=== PATIENT | female | born 1970 | race Caucasian/White ===

== ENCOUNTER → 2018-08-29 09:41 | Outpatient (CLI) | payer OTHER, SELFPAY ==
--- NOTE | 2018-08-29 09:55 | RAD_ITS ---
PROCEDURE: Fluoroscopic guided Hip Injection DATE: August 29, 2018. INDICATION: Female, 48 years old. Chronic hip pain. PHYSICIAN: Dov Gant M.D. MEDICATIONS: 6 mg of betamethasone and 3 cc of 1% lidocaine. 2% Lidocaine administered subcutaneously for local anesthesia. ACCESS SITE: Left hip. NEEDLE: 22-gauge spinal needle. FLUOROSCOPY TIME (if supplied): (0:33) minutes/seconds FINDINGS: The risks, benefits, and alternatives to the procedure were explained to the patient. The specific risks of bleeding, infection, and neurovascular injury were detailed and accepted. Witnessed informed consent was obtained. A 22-gauge spinal needle was positioned under radiographic fluoroscopic localization. Approximately 2 cc of Isovue-300 instilled for localization purposes. Medication was then injected. The patient tolerated the procedure well without any immediate complications. RAD/Inj/Asp Adria Jt Should/Hip/Knee IMPRESSION: 1. Successful fluoroscopic guided hip injection. Electronically Signed: Dov Gant MD at 10:53 EST Tel [phone], Service support ,
== END ==
PROVIDERS: Family Provider Family Medicine; PCP Family Medicine; Referring Provider Specialist; Visit Provider Specialist
DX: Q65.89 Other specified congenital deformities of hip (principal)
CPT/HCPCS: 20610; 77002; Q9967; J0702

== ENCOUNTER → 2018-11-01 10:13 | Outpatient (CLI) | payer OTHER, SELFPAY ==
--- NOTE | 2018-11-01 10:30 | RAD_ITS ---
CLINICAL HISTORY: Female, 48 years old. Left hip pain. PROCEDURE: ARTHROGRAM - LEFT HIP FLUOROSCOPY TIME (if supplied): (0:48) minutes/seconds Injection Information: 10 cc of dilute Magnevist. Number of images obtained: 1 TECHNIQUE: (All elements of maximal sterile barrier technique followed, including US elements as applicable) The procedure as well as the benefits and possible complications including bleeding and infection were explained to the patient. Informed consent was obtained. The patient was in the supine position. The overlying skin was prepped and draped in usual sterile fashion. Following local anesthetic application and under direct fluoroscopic guidance, a 22-gauge spinal needle was placed into the hip joint. 2 cc of Isovue-300 was injected for confirmation. Following this, 10 cc of dilute Magnevist was injected. The patient tolerated procedure well. MRI will follow. RAD/Arthrogram Hip w/ MRI IMPRESSION: Successful left hip arthrogram for MRI imaging. The patient tolerated the procedure well. Electronically Signed: Dov Gant MD at 11:28 EST , Service support ,
--- NOTE | 2018-11-01 11:30 | MRI_ITS ---
STUDY: MR LEFT HIP ARTHROGRAPHY REASON FOR EXAM: Anterior left hip pain, no specific injury. TECHNIQUE: Standardized fat and water weighted pulse sequences were obtained in all 3 orthogonal planes after intra-articular instillation of dilute Magnevist. COMPARISON: Fluoroscopic view from left hip arthrogram. FINDINGS: Normal hip joint without articular joint space narrowing. Normal acetabulum. There is a small tear of the anterosuperior labrum (CLAUDIA image 10; T1 sagittal image 17). Normal femoral head. Normal femoral neck and intratrochanteric region. Normal gluteus minimus, medius and iliopsoas tendons and distal insertions. There is no trochanteric, iliopsoas or iliopectineal bursitis. Normal superior and inferior pubic rami. Normal pubic symphysis. Normal ischial tuberosity. Normal origin of the hamstring tendons. Normal visualized iliac wing. Normal visualized soft tissue structures of the pelvis. MRI/Lower Ext/Jt Only/W Contrast IMPRESSION: Small tear of the anterosuperior labrum. Electronically Signed: You Wang MD at 14:20 EST Tel , Service support ,
== END ==
PROVIDERS: Family Provider Family Medicine; PCP Family Medicine; Referring Provider Specialist; Visit Provider Specialist
DX: M25.552 Pain in left hip (principal)
CPT/HCPCS: 27093; 73722; 77002; A9577; Q9967

== ENCOUNTER → 2019-06-13 | Outpatient (CLI) | payer OTHER, SELFPAY ==
[2019-06-13 08:43] VITALS: BMI 27.1
--- NOTE | 2019-06-13 10:08 | RAD_ITS ---
STUDY: X-RAY CHEST REASON FOR EXAM: Female, 49 years old. Chest pain times several weeks TECHNIQUE: PA and lateral views of the chest. COMPARISON: None. FINDINGS: The lungs are clear and expanded. There is no demonstrated pleural abnormality. Normal size heart. Normal mediastinum and meagan. Normal visualized pulmonary arteries. Normal visualized aortic arch and descending thoracic aorta. Normal visualized thoracic spine. Normal visualized ribs, clavicles, and shoulders. There is no demonstrated abnormality of the visualized soft tissue structures of the upper abdomen. RAD/Chest PA and Lateral IMPRESSION: Normal x-ray examination of the chest. Electronically Signed: Ever Saha MD at 17:05 EDT , Service support ,
[2019-06-13 10:32] LABS: D-Dimer Quantitative (DVT/PE) < 0.27 FEU/ug/m (0.27-0.49)
== END | disposition home or self-care (01) ==
PROVIDERS: Family Provider Family Medicine; PCP Family Medicine; Referring Provider Family Medicine; Visit Provider Family Medicine
DX: R07.9 Chest pain, unspecified (principal)
CPT/HCPCS: 36415; 71046; 85379

== ENCOUNTER → 2019-06-20 | Outpatient (CLI) | payer OTHER, SELFPAY ==
[2019-06-13 08:43] VITALS: BMI 27.1
--- NOTE | 2019-06-20 15:34 | US_ITS ---
STUDY: ULTRASOUND OF THE FEMALE PELVIS - COMPLETE REASON FOR EXAM: Female, 49 years old. Left lower quadrant pain TECHNIQUE: Transabdominal and transvaginal ultrasound images were obtained of the pelvis TECHNICAL QUALITY: Limited COMPARISON: None. FINDINGS: The uterus measures 8.4 x 4.2 x 2.9 cm. Normal uterine cervix. The endometrium measures 3 mm in thickness. There is no demonstrated myometrial mass. The right ovary is not visualized. The left ovary is not visualized. There is no fluid in the cul-de-sac. US/Pelvic (Non ) IMPRESSION: No pelvic pathology identified. Electronically Signed: Harjit Gibbs, at 17:15 EDT Tel , Service support ,
--- NOTE | 2019-06-20 15:34 | BI_ITS ---
MAMMOGRAPHY - BILATERAL SCREENING REASON FOR EXAM: Female, 49 years old. Routine annual screening examination. PERTINENT HISTORY: Non-contributory. TECHNIQUE: Digital bilateral breast yanet (3D mammographic acquisition) in the CC and MLO projections. 2-D mediolateral oblique (MLO) and craniocaudad (CC) views of both breasts were obtained. CAD: Full Field Digital Mammography with Computer Added Detection was performed. COMPARISON: Comparison is made with prior outside examination dated June 13, 2015. FINDINGS: Breast Composition: The breasts are heterogeneously dense, which may obscure small masses. There are no dominant masses or suspicious calcifications. No other significant abnormalities are identified. There has been no significant change since the prior study. BI/SCREEN MAMM (CAD) W/YANET BILAT IMPRESSION: Stable bilateral screening mammogram. Yearly follow-up mammogram recommended. (A) ASSESSMENT CATEGORY: BIRADS Category 1: Negative. A letter regarding these results will be sent to the patient by the facility within 30 days. Approximately 10% of breast cancers are not detected by mammography. A normal mammogram should not delay biopsy of a clinically suspicious abnormality. [id number] Electronically Signed: Dov Gant, at 8:45 EDT , Service support ,
--- NOTE | 2019-06-20 16:04 | US_ITS ---
STUDY: ULTRASOUND OF THE FEMALE PELVIS - COMPLETE REASON FOR EXAM: Female, 49 years old. Left lower quadrant pain TECHNIQUE: Transabdominal and transvaginal ultrasound images were obtained of the pelvis TECHNICAL QUALITY: Limited COMPARISON: None. FINDINGS: The uterus measures 8.4 x 4.2 x 2.9 cm. Normal uterine cervix. The endometrium measures 3 mm in thickness. There is no demonstrated myometrial mass. The right ovary is not visualized. The left ovary is not visualized. There is no fluid in the cul-de-sac. US/Transvaginal Non- IMPRESSION: No pelvic pathology identified. Electronically Signed: Harjit Gibbs, at 17:15 EDT Tel , Service support ,
== END | disposition home or self-care (01) ==
PROVIDERS: Family Provider Family Medicine; PCP Family Medicine; Referring Provider Family Medicine; Visit Provider Family Medicine
DX: R10.2 Pelvic and perineal pain (principal); Z12.31 Encounter for screening mammogram for malignant neoplasm of breast
CPT/HCPCS: 76830; 76856; 77063; 77067

== ENCOUNTER → 2020-10-02 15:12 | Outpatient (CLI) | payer OTHER, SELFPAY ==
[2020-10-01 15:45] VITALS: BMI 28.5
[2020-10-02 18:16] LABS: Absolute Neutrophil Count 4.1 X10^3/uL (2.0-7.7); Basophil# 0.05 X10^3/uL; Basophil% 0.7 % (0-1); Eosinophil# 0.18 X10^3/uL; Eosinophils% 2.6 % (0-5); Hematocrit 41.9 % (37-47); Hemoglobin 13.6 g/dL (12.0-15.0); Lymphocyte % 30.3 % (19-41); Mean Corp Hgb Conc 32.5 g/dL (32-36); Mean Corpuscular Hgb 29.4 pg (27.0-32.0); Mean Corpuscular Volume 90.5 fL (81-99); Mean Platelet Vol. 11.1 fl (6.2-12.0); Monocyte# 0.51 X10^3/uL; Monocyte% 7.4 % (0-10); NRBC Flagged by Analyzer 0 % (0-5); Neutrophil # 4.08 X10^3/uL (2.7-7.7); Neutrophil % 58.9 % (47-70); Platelet Count 265 K/mm3 (150-450); RBC Distribution Width CV 12.3 % (11.6-14.6); RBC Distribution Width SD 40.4 fl (35.1-43.9); Red Blood Count 4.63 M/mm3 (4.2-5.4); White Blood Count 6.9 K/mm3 (4.4-11.0)
[2020-10-02 18:39] LABS: ALB/GLOB Ratio 1.1 RATIO (0.9-2.4); AST(SGOT) 19 U/L (15-37); Alanine Aminotransfer ALT/SGPT 30 U/L (13-56); Albumin, Serum 3.9 g/dL (3.2-5.0); Alkaline Phosphatase 103 U/L (45-117); Anion Gap 7 (5-15); BUN 10 mg/dL (7-18); BUN/Creat Ratio 15.3 RATIO (10-20); Calcium,Total 8.8 mg/dL (8.5-10.1); Chloride 101 mmol/L (98-107); Cholesterol 188 mg/dL (200); Creatinine, Serum 0.66 mg/dL (0.55-1.02); EST Glomerular Filtration Rate 102 mL/min (>60); Est Glom Filt Rate - Afr Amer 123 mL/min (>60); Globulin 3.4 g/dL (2.2-4.2); Glucose 75 mg/dL (74-106); High Density Lipoprotein 88 mg/dL; Potassium 3.4 mmol/L (3.5-5.1); Protein, Total 7.3 g/dL (6.4-8.2); Sodium Level 138 mmol/L (136-145); Triglycerides 52 mg/dL; Very Low Density Lipoprotein 10 mg/dL (5-40)
== END ==
PROVIDERS: PCP Family Medicine; Visit Provider Family Medicine
DX: R53.83 Other fatigue (principal); Z82.49 Family history of ischemic heart disease and other diseases of the circulatory system
CPT/HCPCS: 36415; 80053; 80061; 85025

== ENCOUNTER 2020-10-11 07:52 | Day surgery (SDC) | payer OTHER, SELFPAY ==
[2020-09-09 09:39] VITALS: BMI 27.9
[2020-10-01 15:45] VITALS: BMI 28.5
[2020-10-11 08:12] VITALS: BP 116/79; PULSE 90; RESP 16; TEMP 37.2; O2SAT 100; BMI 26.8
[2020-10-11] MEDS: Lactated Ringers 1,000 ML 100 ML IV (08:25)
--- NOTE | 2020-10-11 08:44 | HP.PCM_ITS ---
History of Present Illness Date of Admission: 10/11/20 The patient is a 50 year old F presents for screening colonoscopy. The patient has never had a screening colonoscopy in the past. She denies any family history of colon cancer. She is not on any blood thinners and she has no abdominal pain or blood in her stool. Past Medical/Surgical History - Planned Operation Planned Operative Procedure/s: cscope open access Date of Operative Procedure: 10/11/20 Permit Signed: No S.O.S: No Is This Patient Having a Total Joint: No - Previous Hospitalizations/Surgeries HX Hospitalizations: No HX of Surgeries: right knee repair. left knee scope. appendectomy. t&a. csection/tubal Any Problems With Anesthesia: Yes - n,v You/Your Family Experience Fever (Hyperthermia) With Anes: No Cholinesterase deficiency: No - Cardiovascular Hx Chest Pain within Last 2 months: No Hx of Irregular Heartbeat and/or Afib: No Hx Heart Attack: No Hx Congestive Heart Failure: No Hx Rheumatic Fever: No Hx Hypertension: No Hx Internal Defibrillator: No Hx Pacemaker: No Hx Cardiac Catheterization: No Hx Cardiac Surgery/Stents/Etc.: No Hx Stress Test: No HX Edema: No Hx Pain in Legs when Walking/Leg Cramps: No - Respiratory Chronic Cough: No HX of Shortness of Breath: No Hoarseness: No Hx Chronic Obstructive Pulmonary Disease (COPD): No Hx Asthma: No Hx Emphysema: No Hx Sleep Apnea: No Hx Oxygen Use at Home: No Hx Respiratory Tract Infection/Cold (presently): No Do You Snore Loudly (louder than talking or can be heard): Yes Do You Often Feel Tired/ Fatigued/ Sleepy Dring Daytime?: No Has Anyone Observed You Stop Breathing During Sleep?: No Result (for STOP score): Negative Hx Smoking: No Smoking Status: Never smoker - Gastrointestinal Hx Gastroesophageal Reflux: No Hx Gastrointestinal Disorders: No Hx Gastrointestinal Bleed: No Hx Ulcer: No Hx Hiatal Hernia: No Difficulty Chewing/Swallowing: No Recent Onset of Swallowing Problems: No Special diet followed at home: No - gilda Hx Unplanned Weight Loss of 20#: No HX Unplanned Weight Gain of 20#: No - Neurological Hx Seizures: No HX Syncope/Blackout Spells/Unconsciousness: Yes - meneries Hx CVA/Stroke: No Hx Transient Ischemic Attacks (TIA): No Hx Multiple Sclerosis: No Hx Parkinson's Disease: No Hx Head/Neck Injury: No Hx Headaches: No Hx Back Injury/Pain: No Recent Onset of Speech Difficulty: No Restless Legs: No Does patient have nerve stimulator: No Patient instructed to have device shut off: No Rep notified?: No - Blood Disorder Hx Leukemia: No Bleeding Tendencies: No Hx Deep Vein Thrombosis: No Hx High Cholesterol: No Blood Transmitted Disease: No Hx Hepatitis: No Hx Cirrhosis: No Hx Anemia: Yes - in the past Hx Blood Disorders: No - Reproduction : No Is Patient Lactating: No Hx Hysterectomy: No Hx Tubal Ligation: Yes Are You Post Menopause: No Pt Instructed Not To Have Any Sex From Now Until Surgery: No - Genitourinary Hx Renal Disease: No - Musculoskeletal Hx Arthritis: No Hx Rheumatoid Arthritis: No Hx Gout: No Recent Onset of an Orthopedic Problem: No - Endocrine Hx Diabetes: No Thyroid Disease: No Hx Steroid Therapy: No - Psycho/Social Hx Substance Use: No Hx Alcohol Use: Yes - social Hx Anxiety: No Hx Depression: No Mental Illness: No Hx Dementia: No - Miscellaneous Hx Cancer: No Recent Exposure to Contagious Disease: No Active MRSA: No Hx of C-Diff: No Any Loose Teeth: No Allergies No Known Allergies Allergy (Verified 10/11/20 08:10) - Discharge Is Pt Admitted From a Custodial, or a Intermediate: No After D/C, Where Do you Plan to Go: Return Home - Physical Exam Vitals/I&O's: Vital Signs Temp Pulse Resp BP Pulse Ox 99.0 F 90 16 116/79 100 10/11/20 08:12 10/11/20 08:12 10/11/20 08:12 10/11/20 08:12 10/11/20 08:12 Oxygen Delivery Method Room Air Weight: 161 lb 6.054 oz Body Mass Index (BMI) 26.8 General: Alert, Oriented x3 Lungs: Normal air movement, No rhonchi Cardiovascular: Regular rate, Regular Rhythm Abdomen: Soft, Non Tender, Non-Distended Microbiology Past 72 Hours 10/09/20 Unknown Interface Orders SARS-CoV-2 Antigen (Rapid) - Final Current Medications Lactated Ringer's () 1,000 mls @ 100 mls/hr IV .Q10H GALINA Last Admin: 10/11/20 08:25 Dose: 100 mls/hr Documented by: Assessment/Plan All Active Problems (Last Reviewed 10/01/20 @ 16:[address] Alexx Platt, DO) Chest pain (Acute) 50-year-old female for screening colonoscopy I explained endoscopy in detail to the patient. I explained the risks including but not limited to stroke or heart attack with anesthesia, perforation of the GI tract, bleeding, infection. I explained that any of these could necessitate further emergency surgery. The patient understands and all questions were answered sufficiently. The patient wishes to proceed with procedure. Derrick Alford MD Pager: [facility] [address] [place] [address], [address] [place] [address] Office: Surgery Risks - Colonoscopy Risks Include but are not Limited To: Risks include but are not limited to: Bleeding, perforation requiring further surgery, inability to complete colonoscopy requiring barium enema.
--- NOTE | 2020-10-11 09:13 | OP.COLON_ITS ---
Patient Name: Seema Deal Procedure Date: 10/11/2020 8:48 AM Date of : 1970 Age: 50 Procedure: Colonoscopy Indications: Screening for colorectal malignant neoplasm Providers: Derrick Alford MD Referring MD: Alexx Platt Medicines: Monitored Anesthesia Care Patient Profile: This is a 50 year old female. Refer to note in patient chart for documentation of history and physical. Last Colonoscopy: none. The patient's first colonoscopy is today. Complications: No immediate complications. Procedure: Pre-Anesthesia Assessment: - Prior to the procedure, a History and Physical was performed, and patient medications and allergies were reviewed. The patient's tolerance of previous anesthesia was also reviewed. The risks and benefits of the procedure and the sedation options and risks were discussed with the patient. All questions were answered, and informed consent was obtained. Prior Anticoagulants: The patient has taken no previous anticoagulant or antiplatelet agents. After reviewing the risks and benefits, the patient was deemed in satisfactory condition to undergo the procedure. After I obtained informed consent, the scope was passed under direct vision. Throughout the procedure, the patient's blood pressure, pulse, and oxygen saturations were monitored continuously. The Colonoscope was introduced through the anus and advanced to the cecum, identified by appendiceal orifice and ileocecal valve. The colonoscopy was performed without difficulty. The patient tolerated the procedure well. The quality of the bowel preparation was good. Scope In: 8:58:15 AM Scope Withdrawal Time 0 hours 6 minutes 3 seconds Scope Out: 9:11:10 AM Total Procedure Duration Time 0 hours 12 minutes 55 seconds Findings: Multiple small-mouthed diverticula were found in the sigmoid colon. The entire examined colon appeared normal on direct and retroflexion views. Impression: - Diverticulosis in the sigmoid colon. - The entire examined colon is normal on direct and retroflexion views. - No specimens collected. Recommendation: - Discharge patient to home. - Resume previous diet. - Continue present medications. - Repeat colonoscopy in 10 years for screening purposes. Procedure Code(s): --- Professional --- 10899, Colonoscopy, flexible; diagnostic, including collection of specimen(s) by brushing or washing, when performed (separate procedure) Diagnosis Code(s): --- Professional --- Z12.11, Encounter for screening for malignant neoplasm of colon K57.30, Diverticulosis of large intestine without perforation or abscess without bleeding CPT copyright 2017 [employer]. All rights reserved. The codes documented in this report are preliminary and upon disulfurizer tender review may be revised to meet current compliance requirements. Derrick Alford MD 10/11/2020 9:13:12 AM This report has been signed electronically. Number of Addenda: 0 Note Initiated On: 10/11/2020 8:48 AM
--- NOTE | 2020-10-11 09:13 | OP.CCLET_ITS ---
10/11/2020 Alexx Platt Re : Colonoscopy procedure for Seema Deal Dear Dr. Platt This procedure was performed on Sunday, October 11, 2020. My impressions and recommendations are as follows: Impressions : - Diverticulosis in the sigmoid colon. - The entire examined colon is normal on direct and retroflexion views. - No specimens collected. Recommendations : - Discharge patient to home. - Resume previous diet. - Continue present medications. - Repeat colonoscopy in 10 years for screening purposes. My findings are described in the full procedure note, which is enclosed. If I can be of further assistance, please feel free to contact me at Doctor phone number(s): , Work: . Sincerely, Derrick Alford MD 10/11/2020 9:13:12 AM This report has been signed electronically.
[2020-10-11 09:15] VITALS: BP 116/79; BP 83/58; PULSE 69; RESP 18; TEMP 36.3; O2SAT 99
[2020-10-11 09:20] VITALS: BP 116/79; BP 90/68; PULSE 67; RESP 18; O2SAT 98
[2020-10-11 09:25] VITALS: BP 103/76; BP 116/79; PULSE 65; RESP 18; O2SAT 100
[2020-10-11 09:30] VITALS: BP 116/79; BP 94/76; PULSE 62; RESP 18; TEMP 36.2; O2SAT 100
[2020-10-11 09:47] VITALS: BP 116/79
== END 2020-10-11 09:59 | disposition home or self-care (01) ==
LOC: EN 07:55 → AC 07:56
PROVIDERS: PCP Family Medicine; Referring Provider Family Medicine; Visit Provider Surgery
PROC: 0DJD8ZZ Inspection of Lower Intestinal Tract, Via Natural or Artificial Opening Endoscopic (ICD-10-PCS; CPT 45378; principal; 2020-10-11 08:55)
DX: Z12.11 Encounter for screening for malignant neoplasm of colon (principal); K57.30 Diverticulosis of large intestine without perforation or abscess without bleeding; Z20.822 Contact with and (suspected) exposure to COVID-19
CPT/HCPCS: 45378; 87426; C9803; J7120; J2405

== ENCOUNTER → 2020-10-16 15:32 | Outpatient (CLI) | payer OTHER, SELFPAY ==
[2020-10-01 15:45] VITALS: BMI 28.5
[2020-10-11 08:12] VITALS: BMI 26.8
--- NOTE | 2020-10-16 15:33 | BI_ITS ---
MAMMOGRAPHY - BILATERAL SCREENING REASON FOR EXAM: Female, 50 years old. Routine annual screening examination. PERTINENT HISTORY: Non-contributory. TECHNIQUE: Digital bilateral breast yanet (3D mammographic acquisition) in the CC and MLO projections. 2-D mediolateral oblique (MLO) and craniocaudad (CC) views of both breasts were obtained. CAD: Full Field Digital Mammography with Computer Added Detection was performed. COMPARISON: Comparison is made with prior study 06/20/2019. FINDINGS: Breast Composition: The breasts are heterogeneously dense, which may obscure small masses. There are no dominant masses or suspicious calcifications. No other significant abnormalities are identified. There has been no significant change since the prior study. BI/SCRN MAMM (CAD)W/YANET BILAT IMPRESSION: Stable bilateral screening mammogram. Yearly follow-up mammogram recommended. (A) ASSESSMENT CATEGORY: BIRADS Category 1: Negative. A letter regarding these results will be sent to the patient by the facility within 30 days. Approximately 10% of breast cancers are not detected by mammography. A normal mammogram should not delay biopsy of a clinically suspicious abnormality. [id number] Electronically Signed: Dov Gant MD at 8:12 EST , Service support ,
== END ==
PROVIDERS: PCP Family Medicine; Referring Provider Family Medicine; Visit Provider Family Medicine
DX: Z12.31 Encounter for screening mammogram for malignant neoplasm of breast (principal)
CPT/HCPCS: 77063; 77067

== ENCOUNTER → 2020-12-05 | Outpatient (CLI) | payer OTHER, SELFPAY ==
[2020-12-04 15:56] VITALS: BMI 27.3
[2020-12-09 10:56] LABS: HPV Reflexed? NOT INDICATED
== END | disposition home or self-care (01) ==
LOC: LABSPEC 09:44
PROVIDERS: PCP Family Medicine; Referring Provider Family Medicine; Visit Provider Family Medicine
DX: Z01.419 Encounter for gynecological examination (general) (routine) without abnormal findings (principal)
CPT/HCPCS: 88175; G0145

== ENCOUNTER → 2021-05-21 09:08 | Outpatient (CLI) | payer OTHER, SELFPAY ==
--- NOTE | 2021-05-21 09:25 | RAD_ITS ---
FLUOROSCOPIC GUIDED ARTHROGRAM FOR MRI ARTHROGRAM INDICATION: Right hip pain.. PERFORMING PHYSICIAN: Guru Arriaga MD DATE OF PROCEDURE: 05/21/2021 PLUG OVERWRAP MACHINE TENDER: NONE ESTIMATED BLOOD LOSS: Negligible SPECIMENS REMOVED: None COMPLICATIONS: None Fluoroscopy time: 1:07 minutes/seconds Informed consent was obtained from the patient. The risks (including bleeding, infection and capsular rupture), benefits, and alternatives to the examination were discussed. The patient was draped and prepared in a sterile fashion. The entrance site was localized using fluoroscopic guidance. Local anesthesia was achieved with 2% lidocaine solution. A 22-gauge spinal needle and stylet were introduced with fluoroscopic guidance into the right hip joint capsule and approximately 2 mL of iodinated contrast was instilled to confirm intra-articular position. Approximately 15 mL of a mixture of gadolinium and normal saline was instilled in the joint capsule. The needle was then removed. The entrance site was dressed with a Band-Aid. There were no immediate postprocedural complications. Patient was sent to MRI for arthrogram. Incidental note was made of a sclerotic lesion in the proximal diaphysis of the right femur would recommend correlation with MRI findings. RAD/Arthrogram Hip IMPRESSION: Uneventful right hip arthrogram for MRI. Incidental note was made of a sclerotic lesion in the proximal diaphysis of the right femur would recommend correlation with MRI findings. Electronically Signed: Guru Arriaga MD at 14:33 EDT Tel , Service support ,
[2021-05-21] MEDS: Lidocaine 2% (5ml sdv) 5 ML VIAL.MPF INFILT (09:30)
[2021-05-21] MEDS: Iopamidol 10 ML in Syringe 1 EACH 600 ML INTRAARTIC (09:30)
--- NOTE | 2021-05-21 10:19 | MRI_ITS ---
STUDY: MR RIGHT HIP ARTHROGRAPHY REASON FOR EXAM: Right hip pain for 3 weeks, right hip strain. TECHNIQUE: Standardized fat and water weighted pulse sequences were obtained in all 3 orthogonal planes after intra-articular instillation of 0.08 mL of dilute gadolinium. COMPARISON: Radiographs 12/06/2020. FINDINGS: Normal hip joint without articular joint space narrowing. Normal acetabulum. There is a tear of the anterosuperior labrum (T1 sagittal image 10). Normal femoral head. Normal femoral neck and intratrochanteric region. There is a bone island in the proximal femoral diaphysis (T2 coronal image 12). There is mild peritendinitis of the anterior gluteus medius tendon (T2 coronal images 10, 11). Normal gluteus minimus and iliopsoas tendons and distal insertions. There is no trochanteric, iliopsoas or iliopectineal bursitis. Normal superior and inferior pubic rami. Normal pubic symphysis. Normal ischial tuberosity. Normal origin of the hamstring tendons. Normal visualized iliac wing. There is mild extravasated contrast at the anterior aspect of the hip joint. MRI/Lower Ext/Jt Only/W Contrast IMPRESSION: Tear of the anterosuperior labrum. Mild peritendinitis of the anterior gluteus medius tendon. Electronically Signed: You Wang MD at 11:35 EDT Tel , Service support ,
== END ==
PROVIDERS: PCP Family Medicine; Referring Provider Student in an Organized Health Care Education/Training Program; Visit Provider Student in an Organized Health Care Education/Training Program
DX: S76.011A Strain of muscle, fascia and tendon of right hip, initial encounter (principal)
CPT/HCPCS: 27093; 73525; 73722; A9575; Q9967

== ENCOUNTER 2021-11-23 12:18 | Emergency (ER) | payer OTHER, SELFPAY ==
[2021-11-23 12:19] VITALS: BP 115/73; PULSE 78; RESP 18; TEMP 36.6; O2SAT 99; BMI 26.6
--- NOTE | 2021-11-23 12:35 | CT_ITS ---
STUDY: CTA CHEST REASON FOR EXAM: Female, 51 years old. Pleuritic Chest Pain RADIATION DOSAGE (If Supplied By Facility): CTDIvol = ( 9.53 ) mGy, DLP = ( 308.29 ) mGycm TECHNIQUE: The examination was performed with the intravenous administration of IV 100mL Isovue-370. Post-processing of the angiographic images was performed, with multiplanar reformation and 3D reconstruction. Individualized dose optimization techniques were used for this CT. COMPARISON: 06/13/2019 FINDINGS: Pulmonary artery and its branches demonstrate no evidence for filling defects to suggest acute pulmonary embolism. Enlargement of the left thyroid lobe with calcifications and substernal extension. Normal caliber of the thoracic aorta. No evidence for mediastinal lymphadenopathy. Trachea and the mainstem bronchi are patent. Upper abdominal structures are grossly within normal limits. The origin of the great vessels are patent. No pericardial effusion. No consolidative process, pleural effusion or pneumothorax Degenerative changes of the thoracic spine. Small calcified granuloma in the right upper lobe IMPRESSION: No evidence for acute pulmonary embolism. No evidence for aortic dissection. Electronically Signed: Justyn Cohen, at 14:20 EST , CT/CTA Chest W/WO Contrast
--- NOTE | 2021-11-23 12:35 | EKG12_ITS ---
Test Reason : RIGHT FLANK PAIN Blood Pressure : / mmHG Vent. Rate : 069 BPM Atrial Rate : 069 BPM P-R Int : 160 ms QRS Dur : 098 ms QT Int : 398 ms P-R-T Axes : 066 075 068 degrees QTc Int : 426 ms Normal sinus rhythm Normal ECG Confirmed by CATHY PAIGE, RAS ([id number]), video news editor ENA DE LA FUENTE ([id number]) on 11/25/2021 9:12:52 AM Referred By: MARKUS Confirmed By:RAS MORGAN MD
--- NOTE | 2021-11-23 12:36 | ED.VIS.GI ---
HPI HPI - GI History of Present Illness Chief Complaint: Abd Pain Narrative Narrative: 51-year-old female presents with her because of right upper quadrant/right lung pain that she has had since yesterday. She states its been on and off for the last few days but the period of intensity was most severe at 1:00 this morning. She denies any fevers or chills. No cough. No nausea or vomiting. Food does not make the pain better or worse. She states it is hard for her to take a deep breath and she gets sharp pain when she does, but she denies any shortness of breath. No leg swelling. No DVT or PE risk factors. She states she had problems with her gallbladder over 20 years ago when she was , but has not had cholecystectomy. She denies any changes in color in her skin. She states the pain is deep inside up underneath her rib cage and under her breast. [facility] Medical History Active cochlear Meniere's disease of left ear Hearing problem Home Medications triamterene 37.5 mg-hydrochlorothiazide 25 mg capsule 1 cap PO DAILY 06/13/19 [History Last Taken Unknown] Allergy/AdvReac Type Severity Reaction Status Date / Time No Known Allergies Allergy Verified 11/23/21 12:21 Family History Grandfather Myocardial infarction Mother Hypertension S/P triple vessel bypass Other Cancer Surgical History History of appendectomy History of section History of knee surgery History of tonsillectomy Social History household members: spouse and children housing: house Smoking Status: Never smoker alcohol intake: current alcohol intake frequency: a few times a week substance use type: does not use what type of physical activity do you participate in: walking frequency: 3-4 times per week do you feel safe at home: Yes ROS ROS ED ROS Narrative Constitutional: No fever, no chills. HEENT: No sore throat. No neck pain. No loss of vision. No rhinorrhea. Cardiovascular: Positive pleuritic right-sided chest pain. No palpitations. No pedal edema. Respiratory: No cough, no shortness of breath. Abdominal: Right upper quadrant abdominal pain. No nausea. No vomiting. Genitourinary: No dysuria. No hematuria. Musculoskeletal: No myalgias. No arthralgias. Neurologic: No headaches. No dizziness. No lightheadedness. Skin: No rash. No change in color. Psychiatric: No depression. No anxiety. EXAM Physical Exam Narrative Exam Narrative: Afebrile. Vital signs noted. HEENT: Normocephalic. Atraumatic. PERRL, EOMI. Neck soft and supple. No point tenderness or step off. Cardiovascular: Regular rate and rhythm. No murmurs, rubs, or gallops appreciated. Respiratory: No tachypnea. Lungs clear to auscultation bilaterally. Gastrointestinal: Abdomen soft, nontender, with normoactive bowel sounds. Negative Arellano sign. No rebound or guarding. Neurological: Awake. Alert. Nonfocal, nonlateralizing. Skin: No rash. Normal color. No pallor. Musculoskeletal: No pedal edema. Full range of motion extremities. Const Vital Signs: 11/23/21 12:19 11/23/21 15:13 Temperature 97.9 F Temperature Source Temporal Pulse Rate 78 69 Respiratory Rate 18 16 Blood Pressure 115/73 106/51 L Blood Pressure Mean 87 69 Pulse Ox 99 95 Oxygen Delivery Method Room Air Room Air MDM [facility] MDM Narrative Medical decision making narrative: She has no tenderness over her gallbladder. I do not feel that an emergent ultrasound is indicated. Rather, I think her pain is more pleurisy/pleuritic chest pain. Chest pain work-up was pursued including CTA of the chest. I will get CMP and lipase to at least evaluate her gallbladder/pancreas but given her clinical history and examination I do not feel that she has choledocholithiasis. Her EKG demonstrates normal sinus rhythm at 69 bpm without ectopy or acute ST changes. She has normal white count of 7.3, hemoglobin normal at 13.9, platelet count also normal at 208. She has slightly low potassium of 3.3 which can be replaced orally. Low anion gap of 4 with a glucose of 92. LFTs are grossly unremarkable. High-sensitivity troponin negative at 6. Lipase normal at 58. CTA of the chest shows no acute process. There is no evidence of pulmonary embolism or aortic dissection. No lung pathology to explain her right-sided pleuritic chest pain. At this point in time, I do feel that she can be discharged safely home with follow-up. She will take [id number] NSAIDs as needed. She was given 1 dose of Toradol here prior to discharge. She will follow up with her primary care provider. Return instructions were reviewed. Patient and her are comfortable with the plan. Disposition is discharged home in stable condition. Lab Data Attestation: I reviewed the patient's lab results. Labs: Laboratory Results - last 24 hr 11/23/21 11/23/21 12:45 12:45 WBC 7.3 RBC 4.74 Hgb 13.9 Hct 41.8 MCV 88.2 MCH 29.3 MCHC 33.3 RDW Std Deviation 40.7 RDW Coeff of Mihai 12.4 Plt Count 208 MPV 10.4 Immature Gran % (Auto) 0.100 Neut % (Auto) 62.8 Lymph % (Auto) 25.4 Cowley % (Auto) 9.0 Eos % (Auto) 1.9 Baso % (Auto) 0.8 Absolute Neuts (auto) 4.6 Absolute Lymphs (auto) 1.86 Nucleated RBC % 0 Sodium 139 Potassium 3.3 L Chloride 105 Carbon Dioxide 30.0 Anion Gap 4 L BUN 8 Creatinine 0.65 Estim Creat Clear Calc 88.42 Est GFR (MDRD) Af Amer 124 Est GFR (MDRD) Non-Af 103 BUN/Creatinine Ratio 12.4 Glucose 92 Calcium 9.3 Total Bilirubin 0.70 AST 16 ALT 19 Alkaline Phosphatase 106 Troponin I High Sens 6 Total Protein 7.0 Albumin 3.7 Globulin 3.3 Albumin/Globulin Ratio 1.1 Lipase 58 L Radiography Diagnostic Testing: Clinical Impression(s) from Imaging Studies Chest CTA 11/23/21 12:35 Discharge Plan Triage Chief Complaint: Abd Pain ED Provider: Ari Fisher Dx/Rx/DC Orders Clinical Impression: Pleurisy, Pleuritic chest pain Instructions: ED Chest Pain, Uncertain Cause, ED Pleurisy Prescriptions: No Action triamterene-hydrochlorothiazid 37.5-25 mg capsule 1 cap PO DAILY RF: 0 Primary Care Provider: Alexx Platt Referrals: Alexx Platt, DO [Primary Care Provider] - 3-5 Days if not improving Disposition Disposition: Home, Self Care
[2021-11-23 12:54] LABS: Absolute Lymphocyte Count 1.86 X10^3/uL (0.83-4.51); Absolute Neutrophil Count 4.6 X10^3/uL (2.0-7.7); Basophil# 0.06 X10^3/uL; Basophil% 0.8 % (0-1); Eosinophil# 0.14 X10^3/uL; Eosinophils% 1.9 % (0-5); Hematocrit 41.8 % (37-47); Hemoglobin 13.9 g/dL (12.0-15.0); Lymphocyte # 1.86 X10^3/ul (0.83-4.51); Lymphocyte % 25.4 % (19-41); Mean Corp Hgb Conc 33.3 g/dL (32-36); Mean Corpuscular Hgb 29.3 pg (27.0-32.0); Mean Corpuscular Volume 88.2 fL (81-99); Mean Platelet Vol. 10.4 fl (6.2-12.0); Monocyte# 0.66 X10^3/uL; NRBC Flagged by Analyzer 0 % (0-5); Neutrophil % 62.8 % (47-70); Platelet Count 208 K/mm3 (150-450); RBC Distribution Width CV 12.4 % (11.6-14.6); RBC Distribution Width SD 40.7 fl (35.1-43.9); Red Blood Count 4.74 M/mm3 (4.2-5.4); White Blood Count 7.3 K/mm3 (4.4-11.0)
--- NOTE | 2021-11-23 12:57 | ED.RN ---
no old ekgs
[2021-11-23 13:20] LABS: ALB/GLOB Ratio 1.1 RATIO (0.9-2.4); AST(SGOT) 16 U/L (15-37); Alanine Aminotransfer ALT/SGPT 19 U/L (13-56); Albumin, Serum 3.7 g/dL (3.2-5.0); Alkaline Phosphatase 106 U/L (45-117); Anion Gap 4 (5-15); BUN 8 mg/dL (7-18); BUN/Creat Ratio 12.4 RATIO (10-20); Calcium,Total 9.3 mg/dL (8.5-10.1); Chloride 105 mmol/L (98-107); Creatinine, Serum 0.65 mg/dL (0.55-1.02); EST Glomerular Filtration Rate 103 mL/min (>60); Est Glom Filt Rate - Afr Amer 124 mL/min (>60); Estimated Creatinine Clearance 88.42 ml/min; Globulin 3.3 g/dL (2.2-4.2); Glucose 92 mg/dL (74-106); Lipase 58 U/L (73-393); Potassium 3.3 mmol/L (3.5-5.1); Sodium Level 139 mmol/L (136-145); Troponin-I HS 6 pg/mL (3.0-54.0)
[2021-11-23] MEDS: Potassium Chloride Oral Tablet 20 MEQ 40 MEQ PO (14:12)
[2021-11-23 15:13] VITALS: BP 106/51; PULSE 69; RESP 16; O2SAT 95
[2021-11-23] MEDS: Ketorolac 30 MG/ML Syringe IV (15:36)
[2021-11-23 16:06] VITALS: BP 88/64; PULSE 64; RESP 16; TEMP 35
== END 2021-11-23 16:07 | disposition home or self-care (01) ==
PROVIDERS: Emergency Provider Emergency Medicine; PCP Family Medicine; Visit Provider Emergency Medicine
DX: R09.1 Pleurisy (principal); R07.81 Pleurodynia; E87.6 Hypokalemia; H81.02 Meniere's disease, left ear; R10.9 Unspecified abdominal pain; Z79.899 Other long term (current) drug therapy
CPT/HCPCS: 71275; 80053; 83690; 84484; 85025; 93005; 96374; 96375; 99284; Q9967; A4216; J2405

== ENCOUNTER → 2022-10-30 | Outpatient (CLI) | payer OTHER, SELFPAY ==
[2022-10-30 16:53] LABS: ALB/GLOB Ratio 1.1 RATIO (0.9-2.4); AST(SGOT) 27 U/L (15-37); Alanine Aminotransfer ALT/SGPT 33 U/L (13-56); Albumin, Serum 4.1 g/dL (3.2-5.0); Alkaline Phosphatase 107 U/L (45-117); Anion Gap 9 (5-15); BUN 18 mg/dL (7-18); BUN/Creat Ratio 27.2 RATIO (10-20); Calcium,Total 9.3 mg/dL (8.5-10.1); Chloride 103 mmol/L (98-107); Cholesterol 209 mg/dL (200); Creatinine, Serum 0.66 mg/dL (0.55-1.02); EST Glomerular Filtration Rate 100 mL/min (>60); Est Glom Filt Rate - Afr Amer 121 mL/min (>60); Globulin 3.7 g/dL (2.2-4.2); Glucose 84 mg/dL (74-106); High Density Lipoprotein 87 mg/dL; Potassium 3.4 mmol/L (3.5-5.1); Protein, Total 7.8 g/dL (6.4-8.2); Sodium Level 140 mmol/L (136-145); Thyroid Stim Hormone (TSH) 1.04 uIU/mL (0.358-3.74); Triglycerides 63 mg/dL; Very Low Density Lipoprotein 13 mg/dL (5-40)
[2022-10-30 17:30] LABS: Vitamin D,25 Hydroxy 21.6 ng/mL
== END | disposition home or self-care (01) ==
LOC: BIMLAB 15:38
PROVIDERS: PCP Family Medicine; Referring Provider Family Medicine; Visit Provider Family Medicine
DX: Z00.00 Encounter for general adult medical examination without abnormal findings (principal); I83.892 Varicose veins of left lower extremity with other complications
CPT/HCPCS: 36415; 80053; 80061; 82306; 84443

== ENCOUNTER → 2022-11-05 | Outpatient (CLI) | payer OTHER, SELFPAY ==
--- NOTE | 2022-11-05 15:54 | BI_ITS ---
MAMMOGRAPHY - BILATERAL SCREENING REASON FOR EXAM: Female, 52 years old. Routine annual screening examination. PERTINENT HISTORY: Non-contributory. TECHNIQUE: Digital bilateral breast yanet (3D mammographic acquisition) in the CC and MLO projections. 2-D mediolateral oblique (MLO) and craniocaudad (CC) views of both breasts were obtained. CAD: Full Field Digital Mammography with Computer Added Detection was performed. COMPARISON: Comparison is made with prior study dated 10/16/2020 and 06/20/2019. FINDINGS: Breast Composition: The breasts are heterogeneously dense, which may obscure small masses. There are no dominant masses or suspicious calcifications. No other significant abnormalities are identified. There has been no significant change since the prior study. BI/SCRN MAMM (CAD)W/YANET BILAT IMPRESSION: Stable bilateral screening mammogram. Yearly follow-up mammogram recommended. (A) ASSESSMENT CATEGORY: BIRADS Category 1: Negative. A letter regarding these results will be sent to the patient by the facility within 30 days. Approximately 10% of breast cancers are not detected by mammography. A normal mammogram should not delay biopsy of a clinically suspicious abnormality. [id number] Electronically Signed: Dov Gant MD at 17:14 EST ,
== END | disposition home or self-care (01) ==
LOC: OPBI 15:52
PROVIDERS: PCP Family Medicine; Referring Provider Family Medicine; Visit Provider Family Medicine
DX: Z12.31 Encounter for screening mammogram for malignant neoplasm of breast (principal)
CPT/HCPCS: 77063; 77067

== ENCOUNTER → 2022-12-07 | Outpatient (CLI) | payer OTHER, SELFPAY ==
--- NOTE | 2022-12-07 14:48 | VDLE_ITS ---
Reason For Study: Pain RIGHT LEFT CFV is compressible, spontaneous, phasic, CFV is compressible, spontaneous, phasic, competent and demonstrates normal competent, and demonstrates normal augmentation. augmentation. FV is compressible, spontaneous, phasic, FV is compressible, spontaneous, phasic, competent and demonstrates normal competent and demonstrates normal augmentation. augmentation. POP V is compressible, spontaneous, phasic, POP V is compressible, spontaneous, phasic, competent and demonstrates normal competent and demonstrates normal augmentation. augmentation. T/P Trunk is compressible. T/P Trunk is compressible. PTV is compressible. PTV is compressible. RT PerV is compressible. LT PerV is compressible. SFJ is competent and measures 0.65 x 0.68 cm. SFJ is INCOMPETENT and measures 0.89 x 0.94 GSV proximal thigh measures 0.35 x 0.34 cm. cm. GSV above knee is competent. GSV proximal thigh measures 0.58 x 0.57 cm. GSV at knee measures 0.42 x 0.46 cm. GSV at knee measures 0.50 x 0.50 cm. GSV below knee is INCOMPETENT for greater GSV INCOMPETENT throughout for greater than than 0.5 seconds. 0.5 seconds. SSV proximal calf is competent and measures ASV mid calf is INCOMPETENT for greater than 0.11 x 0.12 cm. 0.5 seconds and measures 0.52 x 0.52 cm. Procedure ASV 2 mid calf is INCOMPETENT for greater This is a venous duplex using B-mode, color than 0.5 seconds and measures 0.24 x 0.25 cm. flow and spectral Doppler. SSV proximal calf is competent and measures Exam performed in department. 0.11 x 0.11 cm. Patient was scanned in reverse Trendelenburg position during reflux assessment. VL/Venous Duplex US - Surjit Extrem Interpretation Summary Deep veins of the bilateral lower extremities are patent and compressible segme ntally. There is no evidence of bilateral lower extremity deep vein thrombosis. The bilateral great saphenous veins appear patent and compressible segmentally. Positive for reflux in the right great saphenous vein Positive for reflux in the left saphenofemoral junction, left great saphenous, left accessory saphenous veins Ordering Physician: Dolly Mckeon Referring Physician: Marquis Platt M.D. Performed By: Eliana Rapp RVT
== END | disposition home or self-care (01) ==
LOC: CVS 14:46
PROVIDERS: PCP Family Medicine; Visit Provider Physician Assistant
DX: I83.893 Varicose veins of bilateral lower extremities with other complications (principal)
CPT/HCPCS: 93970

== ENCOUNTER → 2023-11-09 | Outpatient (CLI) | payer OTHER, SELFPAY ==
[2023-11-09 16:55] LABS: Absolute Neutrophil Count 4.6 X10^3/uL (2.0-7.7); Basophil# 0.06 X10^3/uL; Basophil% 0.8 % (0-1); Eosinophil# 0.11 X10^3/uL; Eosinophils% 1.5 % (0-5); Hematocrit 41.6 % (37-47); Hemoglobin 13.8 g/dL (12.0-15.0); Lymphocyte % 30.7 % (19-41); Mean Corp Hgb Conc 33.2 g/dL (32-36); Mean Corpuscular Hgb 29.5 pg (27.0-32.0); Mean Corpuscular Volume 88.9 fL (81-99); Monocyte# 0.45 X10^3/uL; NRBC Flagged by Analyzer 0 % (0-5); Neutrophil # 4.56 X10^3/uL (2.7-7.7); Neutrophil % 60.9 % (47-70); Platelet Count 268 K/mm3 (150-450); RBC Distribution Width CV 12.7 % (11.6-14.6); RBC Distribution Width SD 41.5 fl (35.1-43.9); Red Blood Count 4.68 M/mm3 (4.2-5.4); White Blood Count 7.5 K/mm3 (4.4-11.0)
[2023-11-09 17:35] LABS: ALB/GLOB Ratio 1.2 RATIO (0.9-2.4); AST(SGOT) 20 U/L (15-37); Alanine Aminotransfer ALT/SGPT 21 U/L (13-56); Albumin, Serum 4.1 g/dL (3.2-5.0); Alkaline Phosphatase 116 U/L (45-117); Anion Gap 3 (5-15); BUN 8 mg/dL (7-18); Calcium,Total 9.8 mg/dL (8.5-10.1); Chloride 104 mmol/L (98-107); Cholesterol 212 mg/dL (200); Creatinine, Serum 0.67 mg/dL (0.55-1.02); EST Glomerular Filtration Rate 98 mL/min (>60); Est Glom Filt Rate - Afr Amer 119 mL/min (>60); Globulin 3.5 g/dL (2.2-4.2); Glucose 88 mg/dL (74-106); High Density Lipoprotein 92 mg/dL; Potassium 3.5 mmol/L (3.5-5.1); Protein, Total 7.6 g/dL (6.4-8.2); Sodium Level 139 mmol/L (136-145); Triglycerides 73 mg/dL; Very Low Density Lipoprotein 15 mg/dL (5-40)
--- OUTSIDE RECORDS SUMMARY | 2023-11-09 20:41 | XMS RPT_ITS | CCD ---
Author Name Unknown Address [address] [place] [address] Organization [facility] Care Team Providers Care Jewelry Bearing Maker Name Role Phone JENNY BUCHANAN Primary Care Physician [phone] Parish PT, Milady Unavailable Unavailable Jose Luis PORTER, Yousuf Lazaro Unavailable [phone] GITA PAIGE, DR CHRIS Villalpando Attending Unavail able JENNY BUCHANAN Primary Care Unavailabl e Medications Current Medications Medication Drug Class(es) Dates Sig (Normalized) Sig (Original) hydroCHLOROthiazide 25 mg / triamterene 37.5 mg oral capsule (3 sources) Potassium-spari ng Diuretic, Thiazide Diuretic Start: 05-30-2019 take 1 capsule by mouth once daily hydrochlorothiaz kirill-triamterene 25 mg-37.5 mg oral capsule Dose = 1 cap(s), Oral, Daily, 0 Refill(s) Start Date: 05/30/19 Status: Ordered Completed/Discontinued Medications Medication Drug Class(es) Dates Sig (Normalized) Sig (Original) acetaminophen 500 mg oral tablet (2 sources) TYLENOL EXTRA STRENGTH 500 MG TABS 2 tablets as needed acetaminophen [id number] Roseline [facility] aspirin 325 mg oral tablet (2 sources) Platelet Aggregation Inhibitor, Nonsteroidal Anti-inflammatory Drug MICHAEL ASPIRIN 325 MG TABS one a day aspirin [id number] [facility] Problems Active Problems Problem Classification Problem Date Documented Date Episodic/Chronic Abdominal pain (1 source) Left upper quadrant pain 05-30-2019 Episodic Deficiency and other anemia (1 source) Anemia 05-30-2019 Episodic Joint disorders and dislocations; trauma-related (2 sources) Other articular cartilage disorders, right hip; Translations: [Articular cartilage disorder, pelvic region and thigh] Onset: 05-27-2021 05-27-2021 Chronic Joint disorders and dislocations; trauma-related (2 sources) Other articular cartilage disorders, left hip; Translations: [Articular cartilage disorder, pelvic region and thigh] Onset: 12-20-2018 12-20-2018 Chronic Other nervous system disorders (1 source) Abnormal gait; Translations: [Unspecified abnormalities of gait and mobility] Episodic Other upper respiratory infections (1 source) Viral upper respiratory tract infection 08-23-2019 Episodic Past or Other Problems Problem Classification Problem Date Documented Da te Episodic/Chronic Other connective tissue disease (2 sources) Trochanteric bursitis; Translations: [Trochanteric bursitis, right hip] Onset: 09-02-2021 09-02-2021 Episodic Other non-traumatic joint disorders (2 sources) Other specified joint disorders, left hip; Translations: [Other specified disorders of joint, pelvic region and thigh] Onset: 12-20-2018 12-20-2018 Episodic Sprains and strains (2 sources) Hamstring injury; Translations: [Strain of muscle, fascia and tendon of the posterior muscle group at thigh level, right thigh, initial encounter] Onset: 05-27-2021 05-27-2021 Episodic Unclassified (2 sources) Problem Results Test Name Value Interpretation Reference Range Facil ity Vital Signs Date Time Vital Sign Value Performing Clinician Facility NEGATED: Highlighted [id number] 12:01-0400 Body height 162.56 cm Ophelia Carty AT [facility] Work Phone: NEGATED: Highlighted [id number] 12:01-0400 Body height 163 cm Ophelia Carty AT [facility] Work Phone: NEGATED: Highlighted [id number] 12:01-0400 Body mass index (BMI) [Ratio] 25.84 kg/m2 Ophelia Carty AT [facility] Work Phone: NEGATED: Highlighted [id number] 12:01-0400 Body weight 68.04 kg Ophelia Carty AT [facility] Work Phone: NEGATED: Highlighted [id number] 12:01-0400 Body weight 68 kg Ophelia Carty AT [facility] Work Phone: NEGATED: Highlighted [id number] 14:34-0500 Body height 162.56 cm Curt Lorena AT [facility] Work Phone: NEGATED: Highlighted [id number] 14:34-0500 Body height 163 cm Curt Lorena AT [facility] Work Phone: NEGATED: Highlighted [id number] 14:34-0500 Body mass index (BMI) [Ratio] 25.84 kg/m2 Curt Lorena AT [facility] Work Phone: NEGATED: Highlighted [id number] 14:34-0500 Body weight 68.04 kg Curt Lorena AT [facility] Work Phone: NEGATED: Highlighted [id number] 14:34-0500 Body weight 68 kg Curt Lorena AT [facility] Work Phone: Encounters Encounter Date Encounter Type Care Provider Facility Start: 06-23-2023 End: 08-21-[address] CHRIS PELAYO MD Facility:B Start: 12-12-2021 End: 12-12-2021 Pt evaluation Yousuf Amaya PA-C Work Phone: [facility] Work Phone: Start: 06-26-2021 End: 09-09-2021 Physical therapy management YOUSUF AMAYA PA-C [facility] Procedures Date Procedure Procedure Detail Performing Clinician Start: 12-12-2021 End: 12-12-2021 BP scrn no perf at interval Yousuf Amaya PA-C Work Phone: Start: 12-12-2021 End: 12-12-2021 Calc BMI abv [place] f/u Yousuf Stephenson k PA-C Work Phone: Start: 12-12-2021 End: 12-12-2021 Current tobacco non-user cad cap copd pv dm Yousuf DEXTER-C Work Phone: Start: 12-12-2021 End: 12-12-2021 Docrev cur meds by [facility] Yousuf DEXTER-C Work Phone: Start: 12-12-2021 End: 12-12-2021 Pain neg no plan Yousuf DEXTER-C Work Phone: Start: 12-12-2021 End: 12-12-2021 Patient encounter procedure Yousuf VARGASC Work Phone: Start: 10-28-2021 End: 10-28-2021 BP scrn no perf at interval Yousuf DEXTER-C Work Phone: Start: 10-28-2021 End: 10-28-2021 Calc BMI abv [place] f/u Yousuf Stephenson k PA-C Work Phone: Start: 10-28-2021 End: 10-28-2021 Current tobacco non-user cad cap copd pv dm Yousuf DEXTER-C Work Phone: Start: 10-28-2021 End: 10-28-2021 Docrev cur meds by [facility] Yousuf VARGASC Work Phone: Start: 10-28-2021 End: 10-28-2021 Pain doc pos and plan Yousuf DEXTER -C Work Phone: Start: 10-28-2021 End: 10-28-2021 Patient encounter procedure Yousuf VARGASC Work Phone: Appendectomy YOUSUF Leger-C Deliveries by rakel garcia (luc) YOUSUF AMAYA PA-C Plan of Treatment Date Care Activity Detail Author Start: 04-21-2022 End: 04-21-2022 Patient encounter procedure Appointment [facility] Work Phone: Start: 12-12-2021 End: 12-12-2021 Patient encounter procedure Appointment [facility] Work Phone: Start: 10-28-2021 End: 10-28-2021 Patient encounter procedure Appointment [facility] Work Phone: Immunizations Immunization Date Immunization Notes Care Provider Fa cility 12-13-2020 COVID-19, mRNA, LNP- S, PF, 100 mcg/ 0.5 mL dose; Translations: [Moderna COVID-19 Vaccine] YOUSUF AMAYA PA-C [facility] 11-15-2020 COVID-19, mRNA, LNP- S, PF, 100 mcg/ 0.5 mL dose; Translations: [Moderna COVID-19 Vaccine] YOUSUF AMAYA PA-C [facility] Payers Date Payer Category Payer Unknown [id number] 1970 Unknown [id number] Social History Date Type Detail Facility Start: 05-30-2019 Ex-smoker (finding) [facility] Sex Assigned At [facility] Start: 10-28-2021 End: 12-12-2021 Assertion Unknown if ever smoked [facility] Work Phone: NEGATED: Highlighted rowStart: 10-28-2021 End: 10-28-2021 Employment detail Employment detail [facility] Work Phone: Instructions 10-28-2021 Note Date & Type Note Facility [facility] Work Phone: Evaluation + Plan note Note Date & Type Note Facility Evaluation + Plan note No data available for this section [facility] Evaluation note Note Date & Type Note Facility Evaluation note There may be informa tion available, but it has not been provided by the sender. [facility] Work Phone: Hospital Discharge instructions Note Date & Type Note Facility Hospital Discharge instructions No data available for this section [facility] Instructions Note Date & Type Note Facility [facility] Work Phone: Chief Complaint Chief Complaint Description Start Date right hip post right endosco pic hamstring repair sciatic neurolysis subgluteal bursectomy on 06/11/2021 Preliminary chief co mplaint data, not yet signed by the author as of Chief Complaint Description Start Date right hip post right endosco pic hamstring repair sciatic neurolysis subgluteal bursectomy on 06/11/2021 Preliminary chief co mplaint data, not yet signed by the author as of Advance Directives There may be information available, but it has not been provided by the sender. There may be information available, but it has not been provided by the sender. No Advanced Directives Records Found Family History There may be information available, but it has not been provided by the sender.There may be information available, but it has not been provided by the sender.No Family History Records Found Summary Purpose Additional Source Comments Reason for Visit (unrecogniz ed section and content) Reason For Visit Description Start Date Postop - subsequent visit Preliminary reason f or visit data, not yet signed by the author as of right hip post right endosco pic hamstring repair sciatic neurolysis subgluteal bursectomy on 06/11/2021 INFORMATION SOURCE (unrecogn ized section and content) FOR RECORDS PERTAINING TO PATIENTS WHO ARE OR HAVE BEEN ENROLLED IN A CHEMICAL DEPENDENCY/SUBSTANCEABUSE PROGRAM, SOME INFORMATION MAY BE OMITTED. This clinical summary was aggregated from multiple sources. Caution should be exercised in using it in the provision of clinical care. This summary normalizes information from multiple sources, and as a consequence, information in this document may materially change the coding, format and clinical context of patient data. In addition, data may be omitted in some cases. CLINICAL DECISIONS SHOULD BE BASED ON THE PRIMARY CLINICAL RECORDS. [facility] [employer]. provides no warranty or guarantee of the accuracy or completeness of information in this document.
== END | disposition home or self-care (01) ==
LOC: BIMLAB 16:05
PROVIDERS: PCP Family Medicine; Referring Provider Family Medicine; Visit Provider Family Medicine
DX: Z00.00 Encounter for general adult medical examination without abnormal findings (principal)
CPT/HCPCS: 36415; 80053; 80061; 85025

== ENCOUNTER → 2023-11-30 | Outpatient (CLI) | payer OTHER, SELFPAY ==
--- NOTE | 2023-11-30 15:38 | BI_ITS ---
MAMMOGRAPHY - BILATERAL SCREENING REASON FOR EXAM: Female, 53 years old. Routine annual screening examination. PERTINENT HISTORY: Non-contributory. TECHNIQUE: Digital bilateral breast yanet (3D mammographic acquisition) in the CC and MLO projections. 2-D mediolateral oblique (MLO) and craniocaudad (CC) views of both breasts were obtained. CAD: Full Field Digital Mammography with Computer Added Detection was performed. COMPARISON: Comparison is made with prior study September 04, 2023 and October 16, 2020. FINDINGS: Breast Composition: The breasts are heterogeneously dense, which may obscure small masses. There are no dominant masses or suspicious calcifications. No other significant abnormalities are identified. There has been no significant change since the prior study. BI/SCRN MAMM (CAD)W/YANET BILAT IMPRESSION: Stable bilateral screening mammogram. Yearly follow-up mammogram recommended. (A) ASSESSMENT CATEGORY: BIRADS Category 1: Negative. A letter regarding these results will be sent to the patient by the facility within 30 days. Approximately 10% of breast cancers are not detected by mammography. A normal mammogram should not delay biopsy of a clinically suspicious abnormality. [id number] Electronically Signed: Dov Gant MD at 8:52 EDT ,
--- OUTSIDE RECORDS SUMMARY | 2023-12-01 02:33 | XMS RPT_ITS | CCD ---
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 Role Phone JENNY BUCHANAN Primary Care Physician [phone] Parish PT, Milady Unavailable Unavailable Jose Luis PORTER, Yousuf Lazaro Unavailable [phone] GITA PAIGE, DR CHRIS Villalpando Attending Unavail [...] MG TABS 2 tablets as needed acetaminophen [id number] Roseline [facility] aspirin 325 mg oral tablet (2 sources) Platelet Aggregation Inhibitor, Nonsteroidal Anti-inflammatory Drug MICHAEL ASPIRIN 325 MG TABS one a day aspirin [id number] [facility] Problems Active Problems Problem Classification Problem Date [...] Sign Value Performing Clinician Facility NEGATED: Highlighted [id number] 12:01-0400 Body height 162.56 cm Ophelia Carty AT [facility] Work Phone: NEGATED: Highlighted [id number] 12:01-0400 Body height 163 cm Ophelia Carty AT [facility] Work Phone: NEGATED: Highlighted [id number] 12:01-0400 Body mass index (BMI) [Ratio] 25.84 kg/m2 Ophelia Carty AT [facility] Work Phone: NEGATED: Highlighted [id number] 12:01-0400 Body weight 68.04 kg Ophelia Carty AT [facility] Work Phone: NEGATED: Highlighted [id number] 12:01-0400 Body weight 68 kg Ophelia Carty AT [facility] Work Phone: NEGATED: Highlighted [id number] 14:34-0500 Body height 162.56 cm Curt Lorena AT [facility] Work Phone: NEGATED: Highlighted [id number] 14:34-0500 Body height 163 cm Curt Lorena AT [facility] Work Phone: NEGATED: Highlighted [id number] 14:34-0500 Body mass index (BMI) [Ratio] 25.84 kg/m2 Curt Lorena AT [facility] Work Phone: NEGATED: Highlighted [id number] 14:34-0500 Body weight 68.04 kg Curt Lorena AT [facility] Work Phone: NEGATED: Highlighted [id number] 14:34-0500 Body weight 68 kg Curt Lorena AT [facility] Work Phone: Encounters Encounter Date Encounter Type Care Provider Facility Start: 06-23-2023 End: 08-21-[address] CHRIS PELAYO MD Facility:B Start: 12-12-2021 End: 12-12-2021 Pt evaluation Yousuf Amaya PA-C Work Phone: [facility] Work Phone: Start: 06-26-2021 End: 09-09-2021 Physical therapy management YOUSUF AMAYA PA-C [facility] Procedures Date Procedure Procedure Detail Performing Clinician Start: 12-12-2021 End: 12-12-2021 BP scrn no perf at interval Yousuf Amaya PA-C Work Phone: Start: 12-12-2021 End: 12-12-2021 Calc BMI abv [place] f/u Yousuf Stephenson k PA-C Work Phone: Start: 12-12-2021 End: 12-12-2021 Current tobacco non-user cad cap copd pv dm Yousuf DEXTER-C Work Phone: Start: 12-12-2021 End: 12-12-2021 Docrev cur meds by [facility] Yousuf DEXTER-C Work Phone: Start: [...] 10-28-2021 End: 10-28-2021 Docrev cur meds by [facility] Yousuf VARGASC Work Phone: Start: 10-28-2021 End: 10-28-2021 Pain doc pos and plan Yousuf DEXTER -C Work Phone: Start: 10-28-2021 End: 10-28-2021 Patient encounter procedure Yousuf VARAGSC Work Phone: Appendectomy YOUSUF Leger-C Deliveries by rakel garcia (luc) YOUSUF AMAYA PA-C Plan of Treatment Date Care Activity Detail Author Start: 04-21-2022 End: 04-21-2022 Patient encounter procedure Appointment [facility] Work Phone: Start: 12-12-2021 End: 12-12-2021 Patient encounter procedure Appointment [facility] Work Phone: Start: 10-28-2021 End: 10-28-2021 Patient encounter procedure Appointment [facility] Work Phone: Immunizations Immunization Date Immunization Notes Care Provider Fa cility 12-13-2020 COVID-19, mRNA, LNP- S, PF, 100 mcg/ 0.5 mL dose; Translations: [Moderna COVID-19 Vaccine] YOUSUF AMAYA PA-C [facility] 11-15-2020 COVID-19, mRNA, LNP- S, PF, 100 mcg/ 0.5 mL dose; Translations: [Moderna COVID-19 Vaccine] YOUSUF AMAYA PA-C [facility] Payers Date Payer Category Payer Unknown [id number] 1970 Unknown [id number] Social History Date Type Detail Facility Start: 05-30-2019 Ex-smoker (finding) [facility] Sex Assigned At [facility] Start: 10-28-2021 End: 12-12-2021 Assertion Unknown if ever smoked [facility] Work Phone: NEGATED: Highlighted rowStart: 10-28-2021 End: 10-28-2021 Employment detail Employment detail [facility] Work Phone: Instructions 10-28-2021 Note Date & Type Note Facility [facility] Work Phone: Evaluation + Plan note Note Date & Type Note Facility Evaluation + Plan note No data available for this section [facility] Evaluation note Note Date & Type Note Facility Evaluation note There may be informa tion available, but it has not been provided by the sender. [facility] Work Phone: Hospital Discharge instructions Note Date & Type Note Facility Hospital Discharge instructions No data available for this section [facility] Instructions Note Date & Type Note Facility [facility] Work Phone: Chief Complaint Chief Complaint Description [...] BE BASED ON THE PRIMARY CLINICAL RECORDS. [facility] [facility]. provides no warranty or guarantee of the accuracy or completeness of information in this document.
== END | disposition home or self-care (01) ==
LOC: OPBI 15:38
PROVIDERS: PCP Family Medicine; Referring Provider Family Medicine; Visit Provider Family Medicine
DX: Z12.31 Encounter for screening mammogram for malignant neoplasm of breast (principal)
CPT/HCPCS: 77063; 77067

== ENCOUNTER → 2024-05-11 | Outpatient (CLI) | payer OTHER, SELFPAY ==
--- NOTE | 2024-05-11 15:15 | VDLE_ITS ---
Reason For Study: Left leg pain Procedure LEFT This is a venous duplex using B-mode, color CFV is compressible, spontaneous, phasic, flow and spectral Doppler. competent, and demonstrates normal Exam performed in department. augmentation. Patient was scanned in reverse Trendelenburg FV is compressible, spontaneous, phasic, position during reflux assessment. competent and demonstrates normal augmentation. POP V is compressible, spontaneous, phasic, competent and demonstrates normal augmentation. T/P Trunk is compressible. PTV is compressible. LT PerV is compressible. SFJ is INCOMPETENT and measures 0.85 cm. GSV proximal thigh measures 0.62 x 0.65 cm. GSV at knee measures 0.59 x 0.65 cm. GSV INCOMPETENT throughout for greater than 0.5 seconds. ASV from junction is INCOMPETENT for greater than 0.5 seconds and measures 0.30 x 0.28 cm. ASV mid calf is INCOMPETENT for greater than 0.5 seconds and measures 0.43 x 0.40 cm. Goes medial on calf. ASV 2 mid calf is INCOMPETENT for greater than 0.5 seconds and measures 0.32 x 0.32 cm. Goes anterior to meza. SSV proximal calf is INCOMPETENT for greater than 0.5 seconds and measures 0.13 x 0.13 cm. VL/Venous Duplex US, Unilateral Interpretation Summary Deep veins of the left lower extremity are patent and compressible segmentally. There is no evidence of left lower extremity deep vein thrombosis. The left great saphenous vein anthony ears patent and compressible segmentally. Positive for reflux in the left saphenofemoral junction, great saphenous vein t hroughout, accessory saphenous veins in thigh and calf, small saphenous vein Ordering Physician: Dolly Haas Referring Physician: Marquis Platt M.D. Performed By: Eliana Rapp RVT
== END | disposition home or self-care (01) ==
LOC: CVS 15:13
PROVIDERS: PCP Family Medicine; Referring Provider Physician Assistant; Visit Provider Physician Assistant
DX: I83.812 Varicose veins of left lower extremity with pain (principal)
CPT/HCPCS: 93971

== ENCOUNTER 2024-08-02 08:17 | Day surgery (SDC) | payer OTHER, SELFPAY ==
[2024-08-01 08:48] VITALS: BMI 28.5
--- NOTE | 2024-08-02 13:38 | PCM.HP.STD ---
HPI - General HPI Narrative CANDICE ALEXANDER, is a 54 F who presents with left lower extremity painful varicose veins refractory to conservative treatment. She has significant reflux of the GSV throughout. [facility] Medical History Acute chest wall pain Acute frontal sinusitis, unspecified Acute bronchitis, unspecified URI (upper respiratory infection) Hamstring tear Labral tear of right hip joint Active cochlear Meniere's disease of left ear Hearing problem Home Medications ?Medication ?Instructions ?Recorded ?Last Taken ?Type hydrochlorothiazide 12.5 mg capsule 12.5 mg PO DAILY #90 caps 11/09/23 Unknown Rx Allergy/AdvReac Type Severity Reaction Status Date / Time No Known Allergies Allergy Verified 06/20/24 15:32 Family History Grandfather Myocardial infarction Mother Hypertension S/P triple vessel bypass Other Cancer Surgical History History of knee surgery History of section History of tonsillectomy History of appendectomy Social History household members: spouse housing: house current occupational status: employed current occupation: [employer] pets and animals: Yes Smoking Status: Never smoker alcohol intake: current alcohol intake frequency: a few times a week substance use type: does not use diet: low salt caffeine: No what type of physical activity do you participate in: walking frequency: 3-4 times per week do you feel safe at home: Yes ROS Constitutional Constitutional: Denies chills, fever(s), frequent falls, lethargy or weakness Eyes Eyes: Denies blind spots, change in vision or loss of vision ENT HEENT: Denies bleeding gums, hoarseness or sore throat Cardiovascular Cardiovascular: Denies abdominal pain, bluish discoloration of hand/feet, chest pain with activity, claudication, cold extremities, cyanosis, dyspnea on exertion, erythema on extremities, irregular heart rhythm, leg edema, leg ulcers, numbness in extremities or weakness in extremities Respiratory/Chest Respiratory/Chest: Denies cough, excessive phlegm production, shortness of breath at rest, shortness of breath with exertion or wheezing Gastrointestinal Gastrointestinal: Denies anorexia, change in stool character, constipation, diarrhea, melena or rectal bleeding Genitourinary Genitourinary: Denies dysuria or hematuria Musculoskeletal Musculoskeletal: Denies abnormal gait Integumentary Integumentary: Reports other Details: ; Denies erythema, non-healing lesions or wounds Neurologic Neurologic: Denies abnormal speech, focal weakness, headache(s), loss of vision, numbness, paresthesias or sensory deficit Hematologic/Lymphatic Hematologic/Lymphatic: Denies easy bleeding, easy bruising or lymphadenopathy Vital Signs Vital Signs Vital Signs: Weight Weight: 166 lb Body Mass Index (BMI) 28.5 Physical Exam Const alert, oriented x3, no apparent distress and healthy appearing General Appearance: cooperative; Negative for combative or lethargic Orientation / Consciousness: awake Exam Limitations: no limitations HEENT Head and Scalp: normocephalic and atraumatic Eyes EOMs intact bilaterally General Eye: normal appearance of both eyes Neck full ROM, no lymphadenopathy and thyroid normal General: trachea midline Thyroid: thyroid normal Resp normal respiratory effort and no use of accessory muscles Effort and Inspection: Negative for labored, stridor or audible wheezes Cardio regular rate and regular rhythm Back/Spine Cervical Spine: cervical ROM normal Extremity full ROM, normal capillary refill and no clubbing, cyanosis or edema Skin no rashes or lesions noted and no wounds Neuro oriented x3, CN's II-XII intact bilaterally, no focal motor deficits and no sensory deficits noted Psych thought process normal, cooperative, affect normal, speech normal and activity/motor behavior normal Assessment & Plan Assessment/Plan (1) Varicose veins of left lower extremity with pain: PLAN: -left GSV chemical ablation
--- NOTE | 2024-08-02 16:50 | OP.PCM_ITS ---
Operative Report (Standard) Operative Information Surgery/Procedure Performed: Right great saphenous vein chemical ablation Surgeon: Alan Rubio Date of Procedure: 08/02/24 Procedure Start Time: 14:00 Procedure Stop Time: 14:30 Pre-Operative Diagnosis: Right lower extremity varicose veins with pain Post-Operative Diagnosis: Same Select all DRAINS/GRAFTS/IMPLANTS that apply: None Type of Anesthesia: Local and Sedation,Conscious Estimated Blood Loss: 2 Specimen collected: No Description of surgery: HPI: Patient is a 54-year-old female with right lower extremity painful varicose veins that are refractory to conservative therapy. She is great saphenous vein reflux throughout presents now for chemical ablation. Description of procedure: Upon obtaining form consent and verification correct patient procedure site patient taken to the Vaccinator where she was positioned prepped and draped in usual sterile fashion. Timeout was performed conscious sedation administered with Versed and fentanyl. Ultrasound used to evaluate the great saphenous vein from the saphenofemoral junction to the ankle and it was continuous with no significant tortuosity. Skin overlying the distal calf great saphenous vein was Nestabs 1% lidocaine and the vessel accessed under ultrasound guidance with a micropuncture needle wire. This was exchanged out for a 7 [place] sheath. Through the 7 [place] sheath the chemical ablation guide was advanced under ultrasound guidance to the saphenofemoral junction. The dilator was withdrawn and the end of the guide position 5 cm inferior to the saphenofemoral junction. The glue delivery catheter was then advanced through the guide and positioned appropriately 5 cm inferior to the saphenofemoral junction. Glue was then delivered along the length of the great saphenous vein per aging department supervisor instructions. Upon completion the guide and catheter withdrawn after which the sheath withdrawn a minute pressure held for 5 minutes with satisfactory hemostasis noted. Dry sterile dressing and Napoleon wrap were then applied and the patient was then taken to recovery area with anticipated discharge to home. 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
== END 2024-08-02 15:35 | disposition home or self-care (01) ==
PROVIDERS: PCP Family Medicine; Referring Provider Surgery Trauma Surgery; Visit Provider Surgery Trauma Surgery
DX: I83.812 Varicose veins of left lower extremity with pain (principal)
CPT/HCPCS: 36482; 99152; 99153; C1894; J7040

== ENCOUNTER → 2024-08-07 | Outpatient (CLI) | payer OTHER, SELFPAY ==
--- NOTE | 2024-08-07 08:57 | VDLE_ITS ---
Reason For Study: Left leg pain RIGHT LEFT CFV is compressible, spontaneous, phasic, CFV is compressible, spontaneous, phasic, competent and demonstrates normal competent, and demonstrates normal augmentation. augmentation. Procedure FV is compressible, spontaneous, phasic, This is a venous duplex using B-mode, color competent and demonstrates normal flow and spectral Doppler. augmentation. Exam performed in department. POP V is compressible, spontaneous, phasic, competent and demonstrates normal augmentation. T/P Trunk is compressible. PTV is compressible. LT PerV is compressible. GSV from junction to distal calf is occluded s/p VenaSeal 08/02/2024. Thrombus noted 1.5 cm from junction with CFV. Varicose veins in calf extending from GSV are thrombus filled. VL/Venous Duplex US, Unilateral Interpretation Summary Deep veins of the left lower extremity are patent and compressible segmentally. There is no evidence of left lower extremity deep vein thrombosis. Left great saphenous vein occlusion consistent with recent chemical ablation. Ordering Physician: Dolly Haas Referring Physician: Marquis Platt M.D. Performed By: Eliana Rapp RVT
== END | disposition home or self-care (01) ==
LOC: CVS 08:55
PROVIDERS: PCP Family Medicine; Referring Provider Physician Assistant; Visit Provider Physician Assistant
DX: Z48.812 Encounter for surgical aftercare following surgery on the circulatory system (principal); M79.605 Pain in left leg
CPT/HCPCS: 93971

== ENCOUNTER → 2025-01-09 | Outpatient (CLI) | payer OTHER, SELFPAY ==
[2025-01-09 17:03] LABS: Absolute Lymphocyte Count 2.05 X10^3/uL (0.83-4.51); Absolute Neutrophil Count 4.3 X10^3/uL (2.0-7.7); Basophil# 0.05 X10^3/uL; Basophil% 0.7 % (0-1); Eosinophil# 0.13 X10^3/uL; Eosinophils% 1.9 % (0-5); Hematocrit 40.5 % (37-47); Hemoglobin 13.6 g/dL (12.0-15.0); Lymphocyte # 2.05 X10^3/ul (0.83-4.51); Lymphocyte % 29.3 % (19-41); Mean Corp Hgb Conc 33.6 g/dL (32-36); Mean Corpuscular Hgb 29.5 pg (27.0-32.0); Mean Corpuscular Volume 87.9 fL (81-99); Mean Platelet Vol. 11.3 fl (6.2-12.0); Monocyte# 0.47 X10^3/uL; Monocyte% 6.7 % (0-10); NRBC Flagged by Analyzer 0 % (0-5); Neutrophil # 4.29 X10^3/uL (2.7-7.7); Neutrophil % 61.3 % (47-70); Platelet Count 257 K/mm3 (150-450); RBC Distribution Width SD 41.6 fl (35.1-43.9); Red Blood Count 4.61 M/mm3 (4.2-5.4)
[2025-01-09 17:49] LABS: ALB/GLOB Ratio 1.5 RATIO (0.9-2.4); AST(SGOT) 21 U/L (<=31); Alanine Aminotransfer ALT/SGPT 19 U/L (<=34); Albumin, Serum 4.4 g/dL (3.5-5.0); Alkaline Phosphatase 112 U/L (35-104); Anion Gap 11 (5-15); BUN 19 mg/dL (4-19); Calcium,Total 9.7 mg/dL (7.6-11.0); Chloride 102 mmol/L (98-108); Cholesterol 204 mg/dL (<=200); Creatinine, Serum 0.58 mg/dL (0.70-1.20); EST Glomerular Filtration Rate 108 (>60); Globulin 2.9 g/dL (2.2-4.2); Glucose 98 mg/dL (70-99); High Density Lipoprotein 84 mg/dL; Low Density Lipoprotein Calc. 106 mg/dL; Potassium 3.5 mmol/L (3.3-5.1); Protein, Total 7.3 g/dL (5.9-8.4); Sodium Level 140 mmol/L (133-145); Total Bilirubin 0.32 mg/dL (0.00-1.30); Triglycerides 68 mg/dL; Very Low Density Lipoprotein 14 mg/dL (5-40); Vitamin D,25 Hydroxy 29.4 ng/mL (30-100); cholesterol:hdl ratio screen 2.43
== END | disposition home or self-care (01) ==
LOC: BIMLAB 14:41
PROVIDERS: PCP Family Medicine; Referring Provider Family Medicine; Visit Provider Family Medicine
DX: Z00.00 Encounter for general adult medical examination without abnormal findings (principal)
CPT/HCPCS: 36415; 80053; 80061; 82306; 85025

== ENCOUNTER → 2025-01-15 | Outpatient (CLI) | payer OTHER, SELFPAY ==
--- NOTE | 2025-01-15 16:00 | BI_ITS ---
EXAM: SCRN MAMM (CAD)W/YANET BILAT 01/15/2025 CLINICAL HISTORY: F, Age 54 y/o , SCREENING TECHNIQUE: Bilateral screening digital breast tomosynthesis with 2D and 3D images. Computer aided detection. COMPARISON: Prior exam(s) dated 11/30/2023, 11/05/2022, 10/16/2020. FINDINGS: TISSUE DENSITY: The breast tissue is composed of scattered area of fibroglandular density. Bilateral Breast Mammographic Findings: No significant masses, calcifications or other abnormalities are identified. BI/SCRN MAMM (CAD)W/YANET BILAT IMPRESSION: Right Breast: BIRADS 1 NEGATIVE. Left Breast: BIRADS 1 NEGATIVE. OVERALL FINAL ASSESSMENT: BIRADS 1 NEGATIVE. RECOMMENDATION: Routine annual follow-up in 1 Year A letter with findings and recommendations will be mailed to the patient. Reading Location: [id number]
== END | disposition home or self-care (01) ==
LOC: OPBI 16:03
PROVIDERS: PCP Family Medicine; Referring Provider Family Medicine; Visit Provider Family Medicine
DX: Z12.31 Encounter for screening mammogram for malignant neoplasm of breast (principal)
CPT/HCPCS: 77063; 77067